=== PATIENT | female | born 1970 | race Caucasian/White ===

== ENCOUNTER → 2017-06-03 | Outpatient (CLI) | payer BC ==
[~2017-06-03] MED LIST: AUGMENTIN 875-1 EACH PO; EFFEXOR XR75 MG PO; FOLBIC RF TABL1 EACH PO; MEDROLDOSEPACK PO; SYNTHROID75 MCG PO; XANAX 0.25 MG0.25 MG PO
== END ==
LOC: M.RAD 14:31
DX: J06.9 Acute upper respiratory infection, unspecified (principal); J01.00 Acute maxillary sinusitis, unspecified

== ENCOUNTER → 2020-06-20 | Outpatient (CLI) | payer OTHER | LOC: M.RAD 06-13 11:11 | PROVIDERS: ATTEND Registered Nurse Diabetes Educator | DX: Z12.31 Encounter for screening mammogram for malignant neoplasm of breast (principal); G89.29 Other chronic pain; M19.012 Primary osteoarthritis, left shoulder ==

== ENCOUNTER 2020-11-27 13:32 | Emergency (ER) | payer OTHER ==
[~2020-11-27] VITALS: Ht 157.5 cm; Wt 88.5 kg
[2020-11-27] MEDS ORDERED: MEDROL4 M1 PO (13:43)
[2020-11-27] MEDS ORDERED: VITAMIN D3125 MC3 PO (13:43)
[2020-11-27] MEDS ORDERED: AZITHROMYCIN500 MG PO (13:43)
[2020-11-27] MEDS ORDERED: MECLIZINE HCL25 M1 PO (13:44)
[2020-11-27] MEDS ORDERED: BIOTIN5 MG PO (13:44)
[2020-11-27] MEDS ORDERED: VITAMIN B122500 MCG PO (13:44)
[2020-11-27] MEDS ORDERED: WELLBUTRIN XL150 MG PO (13:45)
[2020-11-27] MEDS ORDERED: SPIRONOLACTONE50 MG PO (13:45)
[2020-11-27] MEDS ORDERED: FLUOXETINE HCL40 MG PO (13:46)
[2020-11-27 17:13] LABS: ABSOLUTE BASOPHILS 0.1 thou/uL (0.0-0.2); ABSOLUTE LYMPHOCYTES 1.4 thou/uL (0.8-5.3); ABSOLUTE MONOCYTES 0.4 thou/uL (0.0-1.2); BASOPHILS 1.2 %; EOSINOPHILS 0.1 %; HEMATOCRIT 42.6 % (37.0-47.0); HEMOGLOBIN 14.1 gm/dL (12.0-15.0); LYMPHOCYTES 14.1 %; MCHC 33.1 g/dL (28.0-37.0); MCV 87.5 fL (80.0-100.0); MONOCYTES 4.2 %; MPV 8.7 fl. (7.2-11.1); NUCLEATED RBCS 0 /100WBC; PLATELET COUNT* 367 thou/uL (150-400); POLYS 80.4 %; RBC 4.87 mil/uL (4.20-5.00); RDW-CV 13.4 % (10.5-14.5); WBC 9.9 thou/uL (4.0-11.0)
[2020-11-27 17:24] LABS: CALCIUM 9.4 mg/dL (8.5-10.1); CREATININE 0.9 mg/dL (0.6-1.3); POTASSIUM 3.9 mmol/L (3.5-5.1)
[2020-11-27 17:34] LABS: ALBUMIN 4.4 g/dL (3.4-5.0); MAGNESIUM 1.8 mg/dL (1.8-2.4); TOTAL BILIRUBIN 0.4 mg/dL (<0.1-1.0)
[2020-11-27] MEDS ORDERED: VENTOLIN HFA 1818 GM INH (19:30)
[2020-11-27] MEDS ORDERED: ATIVAN0.5 M1 PO (19:31)
[2020-11-27 19:51] VITALS: BP 145/80
--- NOTE | 2020-11-28 07:51 | EKG ---
[place] [address] ELECTROCARDIOGRAM REPORT Name: DANIEL MCKEON Room: [facility]#: [id number] Admission: 11/27/20 Attend Phys: Discharge: 11/27/20 Date of : 66 Date of Service: 11/27/20 1709 Report #: [id number] THIS REPORT FOR: //name// [facility] ED Test Date: 2020-11-27 Test Time: 17:09:05 Pat Name: DANIEL MCKEON Department: Room: Gender: F [employer]el[employer] Design[facility] 1970 Requested By: Vidhi Jackson Order Number: [id number] MD: Leroy Ma Measurements Intervals Spur Rate: 87 P: 56 MS: 141 QRS: 46 QRSD: 78 T: 53 QT: 384 QTc: 462 Interpretive Statements Sinus rhythm Low voltage, precordial leads Inferior Q waves noted Low voltage limb leads compared to ECG 04/16/2016 19:34:16 No significant changes noted Electronically Signed On 11-28-2020 7:51:20 CDT by Leroy Ma [email or web address] <ELECTRONICALLY SIGNED> By: Leroy Ma MD, FACC 11/28/20 0751 1709 1709 Leroy Ma MD, [facility] /EPI
[2020-11-28] MEDS ORDERED: ATIVAN0.5 M1 PO (11:09)
== END 2020-11-27 19:53 | disposition home or self-care (01) ==
LOC: M.ERS 13:32
PROVIDERS: Nurse Practitioner Family
DX: J98.8 Other specified respiratory disorders (principal); Z20.822 Contact with and (suspected) exposure to COVID-19; F41.9 Anxiety disorder, unspecified; F32.9 Major depressive disorder, single episode, unspecified; F17.210 Nicotine dependence, cigarettes, uncomplicated; Z79.899 Other long term (current) drug therapy